=== PATIENT | female | born 2000 | race Two or more races ===

== ENCOUNTER 2019-01-17 18:28 | Emergency (ER) | payer MEDICAID ==
[~2019-01-17] VITALS: Ht 160 cm; Wt 59.0 kg
[2019-01-17 19:47] VITALS: BP 142/96
[2019-01-17] MEDS ORDERED: KETOROLAC TROMETH 60MG/2ML VIAL IM ONE (21:45)
[2019-01-17] MEDS ORDERED: METHOCARBAMOL 500 MG TAB PO ONE (21:45)
== END 2019-01-17 22:59 | disposition home or self-care (01) ==
LOC: EDBD 18:28 → ER 18:28
DX: S61.411A Laceration without foreign body of right hand, initial encounter (principal); M54.2 Cervicalgia; R51 Headache; V47.5XXA Car driver injured in collision with fixed or stationary object in traffic accident, initial encounter; Y93.I9 Activity, other involving external motion; Y92.488 Other paved roadways as the place of occurrence of the external cause; Y99.8 Other external cause status
CPT/HCPCS: 70450; 72125; 96372; 99284; J1885